=== PATIENT | female | born 1960 | race Caucasian/White ===

== ENCOUNTER 2021-03-24 08:09 | Day surgery (SDC) | payer BC, MEDICAID ==
[2021-03-24] MEDS ORDERED: Dextrose 5%-Lactated Ringers 1,000 ML IV SCH (09:00)
[2021-03-24] MEDS ORDERED: Midazolam 1 MG/ML 2 ML SDV ONE (13:01)
[2021-03-24] MEDS ORDERED: fentaNYL 100 MCG/2 ML SDV ONE (13:01)
[2021-03-24] MEDS ORDERED: Propofol 200 MG/20 ML SDV ONE (13:01)
--- NOTE | 2021-04-08 16:36 | OR ---
DATE OF PROCEDURE: 03/24/2021 SURGEON: Barak Smith MD PREOPERATIVE DIAGNOSIS: Family history of colon carcinoma with positive Cologuard test. POSTOPERATIVE DIAGNOSES: 1. Family history of colon carcinoma with positive Cologuard test. 2. Normal colonoscopic examination. OPERATIVE PROCEDURE: Flexible colonoscopy. ANESTHESIA: IV sedation. INDICATION FOR PROCEDURE: A 60-year-old female presenting with a positive Cologuard test. On questioning the patient, she also has a family history significant for mother with colon carcinoma. The plan is to proceed with colonoscopy with biopsies and/or polypectomy as indicated. Potential risks including bleeding and perforation were discussed, and the patient wishes to proceed. DETAILS OF PROCEDURE: The patient was taken to the operating room, placed in a left lateral decubitus position. IV sedation was administered, after which the initial digital rectal exam was performed and was unremarkable. Colonoscope was passed into the rectum with retroflexion revealing uncomplicated hemorrhoidal columns. Scope was eventually passed to the level of the cecum. The prep was fairly good. Small amount of liquid stool was present to that level. No abnormalities were noted. Specifically, there are no areas of diverticular disease, no areas of colitis, no polyps or other signs of neoplasia. Scope was then withdrawn. The above findings reconfirmed, and the procedure then concluded. The patient was taken to the recovery room in satisfactory condition. Given the family history of colon carcinoma, recommendation would be to repeat colonoscopy in 5 years. Barak Smith MD /[id number]
== END 2021-03-24 14:34 | disposition home or self-care (01) ==
LOC: JP.SDS 08:09
PROVIDERS: ATTEND Surgery
DX: R19.5 Other fecal abnormalities (principal); K64.9 Unspecified hemorrhoids; Z80.0 Family history of malignant neoplasm of digestive organs
CPT/HCPCS: 45378; J2250; J2704; J3010; J7121